=== PATIENT | male | born 1990 | race Caucasian/White ===

== ENCOUNTER 2017-03-14 08:00 | Inpatient (IN) | payer MEDICARE, MEDICAID ==
[~2017-03-14] VITALS: Ht 165.1 cm; Wt 63.5 kg
[2017-03-14 08:32] LABS: BASOPHILS % (AUTO) 0.3 % (0.0-2.0); EOSINOPHILS % (AUTO) 0.2 % (1.0-6.0); HEMATOCRIT 52.3 % (41-53); HEMOGLOBIN 17.7 g/dL (13.5-17.5); LYMPHOCYTES # (AUTO) 1.4 K/uL (1.0-4.8); LYMPHOCYTES % (AUTO) 13.1 % (22.0-44.0); MEAN CORPUSCULAR HEMOGLOBIN 30.9 pg (26.0-34.0); MEAN CORPUSCULAR HGB CONC 33.7 G/dL (31.0-37.0); MEAN CORPUSCULAR VOLUME 92 fL (80-100); MONOCYTES # (AUTO) 0.7 K/uL (0.1-1.0); MONOCYTES % (AUTO) 7.2 % (2.0-9.0); NEUTROPHILS # (AUTO) 8.2 K/uL (1.8-7.7); NEUTROPHILS % (AUTO) 79.2 % (40.0-70.0); PLATELET COUNT (AUTO) 175 K/uL (150-450); RED BLOOD CELL COUNT(AUTO) 5.72 MIL/uL (4.50-5.90); RED CELL DISTRIBUTION WIDTH 14.2 % (11.5-14.5); WHITE BLOOD COUNT (AUTO) 10.4 K/uL (4.5-11.0)
[2017-03-14 08:37] LABS: ANION GAP 10 mmol/L (8-16); CALCIUM, TOTAL 9.9 mg/dL (8.8-10.5); CARBON DIOXIDE 28 mmol/L (22-29); CHLORIDE 99 mmol/L (98-107); CREATININE 1.15 mg/dL (0.60-1.30); GLOMERULAR FILTR. RATE CALC > 60 mL/min (>60); SODIUM SERUM 137 mmol/L (136-145); UREA NITROGEN, BLOOD 13 mg/dL (7-18)
[2017-03-14 08:45] LABS: ALANINE AMINOTRANSFERASE 23 U/L (12-78); ALBUMIN 5.2 g/dL (3.4-5.0); ASPARTATE AMINOTRANSFERASE 18 U/L (15-37); BILIRUBIN,TOTAL 0.5 mg/dL (0.1-1.0); TOTAL PROTEIN, SERUM 9.2 g/dL (6.4-8.2)
[2017-03-14] MEDS ORDERED: HALOPERIDOL LACTATE 5 MG/ML VIAL IM ONE (09:30)
[2017-03-14] MEDS ORDERED: DiphenhydrAMINE HCL 50 MG/ML VIAL IM ONE (09:30)
[2017-03-14] MEDS ORDERED: LORazepam 2 MG/ML VIAL IM ONE (09:30)
[2017-03-14] MEDS ORDERED: HALOPERIDOL 5 MG TABLET PO PRN (10:15)
[2017-03-14] MEDS ORDERED: ZOLPIDEM TARTRATE 10 MG TABLET PO PRN (10:15)
[2017-03-14] MEDS ORDERED: LORazepam 2 MG TABLET PO PRN (10:15)
[2017-03-14 14:42] VITALS: BP 127/83
[2017-03-14] MEDS ORDERED: NICOTINE 7 MG/24 HOUR PATCH TD ONE (14:45)
[2017-03-14 16:45] VITALS: BP 129/65
[2017-03-14] MEDS: RisperiDONE 3 MG TABLET PO SCH (18:36)
[2017-03-15 06:57] LABS: CHOL/HDL RATIO 5.2 (4.2-7.3)
[2017-03-15 08:28] VITALS: BP 129/73
[2017-03-15] MEDS: RisperiDONE 3 MG TABLET PO SCH ×2 (09:18→16:26)
[2017-03-15] MEDS ORDERED: ACETAMINOPHEN 325 MG TABLET PO PRN (13:30)
[2017-03-15] MEDS ORDERED: IBUPROFEN 400 MG TABLET PO PRN (13:30)
[2017-03-15 16:57] VITALS: BP 129/73
[2017-03-16 07:02] LABS: HEMOGLOBIN A1C 5.7 % (4.5-6.2)
[2017-03-16 07:21] LABS: CHOL/HDL RATIO 4.6 (4.2-7.3); THYROID STIMULATING HORMONE 0.97 uIU/mL (0.36-3.74)
[2017-03-16 08:22] VITALS: BP 112/76
[2017-03-16] MEDS: RisperiDONE 3 MG TABLET PO SCH ×2 (09:30→16:35)
[2017-03-16 16:27] VITALS: BP 117/77
[2017-03-17 08:20] VITALS: BP 106/60
[2017-03-17] MEDS: RisperiDONE 3 MG TABLET PO SCH (08:55)
[2017-03-17] MEDS ORDERED: RISP3 PO (09:32)
== END 2017-03-17 13:25 | disposition home or self-care (01) | DRG 885 ==
LOC: EMS 08:03 → EEVIPCON 08:03 → 3EC 14:30
PROVIDERS: ADMIT Psychiatry & Neurology Psychiatry; ATTEND Psychiatry & Neurology Psychiatry
DX: F29 Unspecified psychosis not due to a substance or known physiological condition (principal); R45.851 Suicidal ideations; R00.0 Tachycardia, unspecified; R73.9 Hyperglycemia, unspecified
CPT/HCPCS: 83036; 84443; 96372; 99285; G0480; J1200; J1630; J2060